=== PATIENT | female | born 2000 | race Caucasian/White ===

== ENCOUNTER → 2023-08-14 08:33 | Outpatient (CLI) | payer OTHER, SELFPAY | PROVIDERS: PCP Nurse Practitioner Family; Visit Provider Nurse Practitioner Family | DX: J02.9 Acute pharyngitis, unspecified (principal); B95.1 Streptococcus, group B, as the cause of diseases classified elsewhere | CPT/HCPCS: 87070 ==

== ENCOUNTER 2024-02-15 23:24 | Outpatient (CLI) | payer OTHER, SELFPAY | END 2024-02-15 23:59 | LOC: LAB.DROPOF 23:24 | PROVIDERS: PCP Nurse Practitioner Family; Visit Provider Nurse Practitioner Family | DX: J02.9 Acute pharyngitis, unspecified (principal) | CPT/HCPCS: 87070 ==

== ENCOUNTER 2024-12-19 15:30 | Outpatient (CLI) | payer OTHER, SELFPAY | END 2024-12-19 23:59 | disposition home or self-care (01) | LOC: LAB.DROPOF 12-20 09:47 | PROVIDERS: PCP Nurse Practitioner Family; Visit Provider Nurse Practitioner Family | DX: J02.9 Acute pharyngitis, unspecified (principal) | CPT/HCPCS: 87070 ==